=== PATIENT | female | born 1995 | race American Indian/Alaskan Native ===

== ENCOUNTER 2020-02-22 10:01 | Emergency (ER) | payer OTHER ==
--- NOTE | 2020-02-22 10:26 | Emergency Department Report ---
Blank Doc - Documentation Documentation: 24-year-old female that presents with worsening headache after being hit by a basketball. Denies any other complaints or injuries. This initial assessment/diagnostic orders/clinical plan/treatment(s) is/are subject to change based on patient's health status, clinical progression and re- assessment by fellow clinical providers in the ED. Further treatment and workup at subsequent clinical providers discretion. Patient/guardians urged not to elope from the ED as their condition may be serious if not clinically assessed and managed. Initial orders include: 1- Patient sent to [facility] for further evaluation and treatment 2- CT head
[2020-02-22 10:32] VITALS: BP 113/68
--- NOTE | 2020-02-22 11:24 | Cat Scan Report ---
CT head/brain wo con INDICATION / CLINICAL INFORMATION: 24 years Female; MAIN. TECHNIQUE: Axial CT images of the lumbar spine were obtained after administration of intrathecal contrast. Sagi ttal and coronal reformatted images were produced. All CT scans at this location are performed using CT dose reduction for ALARA by means of automated exposure control. COMPARISON: None available. FINDINGS: POST-SURGICAL CHANGES: None. ALIGNMENT: No significant abnormality. VERTEBRAE: No signs of fracture. Vertebral bodies are grossly normal in height throughout. No signif icant facet joint disease or osseous foraminal narrowing appreciated. INTERVERTEBRAL DISCS: No significant abnormality. PARASPINAL SOFT TISSUES: No significant abnormality. ADDITIONAL FINDINGS: None. IMPRESSION: 1. No focal disc herniation, spinal canal stenosis or nerve root compression. Signer Name: Sam Harper MD, III Signed: 02/22/2020 11:19 AM Workstation Name: [id number]
[2020-02-22] MEDS ORDERED: BUTALB/ACETAMINOPHEN/CAFFEINE TAB PO ONE (12:09)
--- NOTE | 2020-02-22 12:24 | Emergency Department Report ---
ED Headache HPI - General Chief Complaint: Headache Stated Complaint: HIT WITH A BALL IN THE FACE Time Seen by Provider: 02/22/20 10:25 - History of Present Illness Initial Comments: Patient is a 24-year-old female presents emergency room with complaints of a headache that began 3 days ago. She states that she was playing basketball and got hit on the left side of her face with a basketball. She states since then she has had intermittent headaches. She denies any loss of consciousness. She denies any nausea, vomiting, vision changes, numbness, weakness, bowel or bladder incontinence, photophobia, any other injury. She denies any past medical history or allergies to medications. She denies any possibility of . Allergies/Adverse Reactions: Allergies No Known Allergies Allergy (Unverified 02/22/20 10:26) Home Medications: Ambulatory Orders Butalb/Acetaminophen/Caffeine [Fioricet 50-300-40 mg CAP] 1 cap PO Q8HR PRN #7 cap 02/22/20 ED Review of Systems ROS: Stated complaint: HIT WITH A BALL IN THE FACE Other details as noted in HPI Comment: All other systems reviewed and negative ED Past Medical Hx - Past Medical History Previous Medical History?: No - Surgical History Past Surgical History?: No - Medications Home Medications: Home Medications Medication Instructions Recorded Confirmed Last Taken Type Butalb/Acetaminophen/Caffeine 1 cap PO Q8HR PRN #7 cap 02/22/20 Unknown Rx [Fioricet 50-300-40 mg CAP] ED Physical Exam - General Limitations: No Limitations General appearance: alert, in no apparent distress - Head Head exam: Present: atraumatic, normocephalic, other (no facial bony ttp, no ecchymosis, no hematoma, no contusion) - Eye Eye exam: Present: normal appearance, PERRL, EOMI, other (no signs of entrapement). Absent: periorbital swelling, periorbital tenderness Pupils: Present: normal accommodation, other (no racoon eyes) - ENT ENT exam: Present: mucous membranes moist, other (no bach signs ) - Neck Neck exam: Present: normal inspection, full ROM. Absent: tenderness - Respiratory Respiratory exam: Present: normal lung sounds bilaterally. Absent: respiratory distress, wheezes, rales, rhonchi, stridor, chest wall tenderness, accessory muscle use, decreased breath sounds, prolonged expiratory - Cardiovascular Cardiovascular Exam: Present: regular rate, normal rhythm, normal heart sounds. Absent: systolic murmur, diastolic murmur, rubs, gallop - Neurological Exam Neurological exam: Present: alert, oriented X3, CN II-XII intact, normal gait, other (normal finger to nose, normal heel to ho, 5/5 muscle strength in the BUE/BLE, sensation intact throughout, no focal neuro deficit). Absent: motor sensory deficit - Psychiatric Psychiatric exam: Present: normal affect, normal mood - Skin Skin exam: Present: warm, dry, intact ED Course Vital Signs 02/22/20 02/22/20 02/22/20 10:26 10:28 12:52 Pulse Rate 63 Respiratory 18 18 Rate Blood Pressure 113/68 [Right] O2 Sat by Pulse 99 Oximetry 02/22/20 13:09 Pulse Rate Respiratory 18 Rate Blood Pressure [Right] O2 Sat by Pulse Oximetry ED Medical Decision Making - Radiology Data Radiology results: report reviewed Ordering Physician: JEANNE POTTS NP Date of Service: 02/22/20 Procedure(s): CT head/brain wo con Accession Number(s): [id number] cc: JEANNE POTTS NP ADDENDUM The initially submitted report is in error. The following report should be utilized for interpretation of this exam: CT head/brain wo con INDICATION / CLINICAL INFORMATION: 24 years Female; headache. TECHNIQUE: Routine CT head without contrast. All CT scans at this location are performed using CT dose reduction for ALARA by means of automated exposure control. COMPARISON: None. FINDINGS: BRAIN / INTRACRANIAL CONTENTS: No acute hemorrhage, mass effect, midline shift, hydrocephalus, or acute, large territorial infarct. No chronic infarct or atrophy appreciated. No significant white matter abnormality. CRANIOCERVICAL JUNCTION: No significant abnormality. ORBITS: No significant abnormality of visualized orbits. SINUSES / MASTOIDS: No significant abnormality in the visualized paranasal sinuses or mastoid air cells. ADDITIONAL FINDINGS: None. IMPRESSION: 1. No focal mass, hemorrhage, hydrocephalus, or acute, large territorial infarct. Signer Name: Sam Harper MD, III Signed: 02/22/2020 11:47 AM Workstation Name: [id number] Addendum Transcribed By: HR Addendum Dictated By: Sam Harper MD Addendum Electronically Authenticated By: Sam Harper MD Addendum Signed Date/Time: 02/22/201146 DD/ TD/TT: / CT head/brain wo con INDICATION / CLINICAL INFORMATION: 24 years Female; MAIN. TECHNIQUE: Axial CT images of the lumbar spine were obtained after administration of intrathecal contrast. Sagittal and coronal reformatted images were produced. All CT scans at this location are performed using CT dose reduction for ALARA by means of automated exposure control. COMPARISON: None available. FINDINGS: POST-SURGICAL CHANGES: None. ALIGNMENT: No significant abnormality. VERTEBRAE: No signs of fracture. Vertebral bodies are grossly normal in height throughout. No significant facet joint disease or osseous foraminal narrowing appreciated. INTERVERTEBRAL DISCS: No significant abnormality. PARASPINAL SOFT TISSUES: No significant abnormality. ADDITIONAL FINDINGS: None. IMPRESSION: 1. No focal disc herniation, spinal canal stenosis or nerve root compression. Signer Name: Sam Harper MD, III Signed: 02/22/2020 11:19 AM Workstation Name: [id number] Transcribed By: HR Dictated By: Sam Harper MD Electronically Authenticated By: Sam Harper MD Signed Date/Time: 02/22/201118 DD/ 17 TD/TT: - Medical Decision Making Patient is a 24-year-old female presents emergency room with complaints of a headache that began 3 days ago. She states that she was playing basketball and got hit on the left side of her face with a basketball. She states since then she has had intermittent headaches. She denies any loss of consciousness. She denies any nausea, vomiting, vision changes, numbness, weakness, bowel or bladder incontinence, photophobia, any other injury. She denies any past medical history or allergies to medications. She denies any possibility of . vitals are normal. On exam patient is nontoxic-appearing, no bach signs or raccoon eyes, no bony facial tenderness palpation, no deformities, EOMI, no signs of entrapment, no neurological deficits. CT head imaging ordered prior to my examination. CT head shows: 1. No focal mass, hemorrhage, hydrocephalus, or acute, large territorial infarct. Patient given Fioricet while in the emergency department. Her headache has resolved. Patient given prescription for Fioricet. Advised patient Please take medication as prescribed as needed. Please follow-up with your primary care doctor. Return to emergency room for any new or worsening symptoms. - Differential Diagnosis concussion, minor head injury, ICH, SDH, epidural hematoma, fx Critical care attestation.: If time is entered above; I have spent that time in minutes in the direct care of this critically ill patient, excluding procedure time. ED Disposition Clinical Impression: Minor head injury Qualifiers: Encounter type: initial encounter Qualified Code(s): S09.90XA - Unspecified injury of head, initial encounter Disposition: - TO HOME OR SELFCARE Is pt being admited?: No Does the pt Need Aspirin: No Condition: Stable Instructions: Minor Head Injury (ED) Additional Instructions: Please take medication as prescribed as needed. Please follow-up with your primary care doctor. Return to emergency room for any new or worsening symptoms . Prescriptions: Butalb/Acetaminophen/Caffeine [Fioricet 50-300-40 mg CAP] 1 cap PO Q8HR PRN #7 cap PRN Reason: Headache Referrals: DIMITRIOS JUDGE MD [Primary Care Provider] - 2-3 Days VIVIAN MCKEON MD [Staff Physician] - 2-[address] [facility] [Provider Group] - 2-3 Days Time of Disposition: 12:23 Print Language: YAKUT
== END 2020-02-22 13:09 | disposition home or self-care (01) ==
LOC: ED 10:01
DX: S09.90XA Unspecified injury of head, initial encounter (principal); Z79.899 Other long term (current) drug therapy; W21.05XA Struck by basketball, initial encounter; Y93.89 Activity, other specified; Y92.89 Other specified places as the place of occurrence of the external cause; Y99.8 Other external cause status
CPT/HCPCS: 70450; 99283